=== PATIENT | male | born 1960 | race Caucasian/White ===

== ENCOUNTER 2020-09-18 14:12 | Emergency (ER) | payer OTHER ==
[2020-09-18 15:13] LABS: HEMOGLOBIN 15.4 gm/dl (14.0-17.5); RED BLOOD COUNT 4.71 M/UL (4.20-5.50); WHITE BLOOD COUNT 5.8 K/UL (4.5-11.0)
[2020-09-18 16:10] LABS: BUN/CREATININE RATIO 11 (0-10)
== END 2020-09-18 21:07 | disposition home or self-care (01) ==
LOC: ER1 14:12
PROVIDERS: Physician Assistant
DX: R07.9 Chest pain, unspecified (principal); N63.0 Unspecified lump in unspecified breast
CPT/HCPCS: 71045; 80053; 82550; 82553; 83874; 84484; 85025; 93005; 99285